=== PATIENT | female | born 1975 | race Two or more races ===

== ENCOUNTER → 2017-10-05 | Outpatient (CLI) | payer OTHER ==
[~2017-10-05] VITALS: Ht 152.4 cm; Wt 93.4 kg
== END | disposition home or self-care (01) ==
LOC: PPHC 11:56
DX: R42 Dizziness and giddiness (principal); Z00.00 Encounter for general adult medical examination without abnormal findings

== ENCOUNTER 2017-10-06 07:43 | Outpatient (CLI) | payer OTHER | END 2017-10-06 08:02 | disposition home or self-care (01) | LOC: LAB 07:43 | DX: Z00.00 Encounter for general adult medical examination without abnormal findings (principal); R42 Dizziness and giddiness ==

== ENCOUNTER → 2017-10-10 | Outpatient (CLI) | payer OTHER | END | disposition home or self-care (01) | LOC: SONOGRAMA 14:31 | DX: Z00.00 Encounter for general adult medical examination without abnormal findings (principal) ==

== ENCOUNTER → 2017-11-29 | Outpatient (CLI) | payer OTHER | END | disposition home or self-care (01) | LOC: PPHC 15:44 | DX: I10 Essential (primary) hypertension (principal); Z00.8 Encounter for other general examination ==

== ENCOUNTER → 2018-01-28 06:47 | Outpatient (CLI) | payer OTHER | END | disposition home or self-care (01) | LOC: LAB 06:47 | DX: R51 Headache (principal); I10 Essential (primary) hypertension; R42 Dizziness and giddiness ==

== ENCOUNTER 2018-03-19 07:29 | Outpatient (CLI) | payer OTHER | END 2018-03-19 08:02 | disposition home or self-care (01) | LOC: NUCLEAR 07:29 | DX: I10 Essential (primary) hypertension (principal) ==

== ENCOUNTER 2018-08-24 15:42 | Outpatient (CLI) | payer OTHER | END 2018-08-24 18:00 | disposition home or self-care (01) | LOC: LAB 15:42 | DX: D64.89 Other specified anemias (principal); N39.0 Urinary tract infection, site not specified; R10.9 Unspecified abdominal pain; E03.8 Other specified hypothyroidism; E78.49 Other hyperlipidemia; E55.9 Vitamin D deficiency, unspecified; E11.9 Type 2 diabetes mellitus without complications; R73.09 Other abnormal glucose; R80.8 Other proteinuria ==

== ENCOUNTER 2018-08-30 07:03 | Outpatient (CLI) | payer OTHER | END 2018-08-30 07:05 | disposition home or self-care (01) | LOC: MAMO-SONO 07:03 | DX: N63.10 Unspecified lump in the right breast, unspecified quadrant (principal); N63.20 Unspecified lump in the left breast, unspecified quadrant; N64.59 Other signs and symptoms in breast; N64.89 Other specified disorders of breast ==

== ENCOUNTER 2018-08-30 07:22 | Outpatient (CLI) | payer OTHER | END 2018-08-30 07:30 | disposition home or self-care (01) | LOC: LAB 07:22 | DX: Z11.3 Encounter for screening for infections with a predominantly sexual mode of transmission (principal); Z11.59 Encounter for screening for other viral diseases; N90.89 Other specified noninflammatory disorders of vulva and perineum; Z11.4 Encounter for screening for human immunodeficiency virus [HIV] ==

== ENCOUNTER → 2019-03-27 07:55 | Outpatient (CLI) | payer OTHER | END | disposition home or self-care (01) | LOC: LAB 07:55 | DX: I10 Essential (primary) hypertension (principal); E55.9 Vitamin D deficiency, unspecified ==

== ENCOUNTER 2019-04-17 08:46 | Outpatient (CLI) | payer OTHER | END 2019-04-17 08:50 | disposition home or self-care (01) | LOC: NUCLEAR 08:46 | DX: I65.29 Occlusion and stenosis of unspecified carotid artery (principal); I10 Essential (primary) hypertension ==

== ENCOUNTER 2020-12-10 11:03 | Outpatient (CLI) | payer OTHER | END 2020-12-10 11:29 | disposition home or self-care (01) | LOC: MAMO-SONO 11:03 | DX: N64.59 Other signs and symptoms in breast (principal); N64.89 Other specified disorders of breast ==

== ENCOUNTER 2021-02-24 07:47 | Outpatient (CLI) | payer OTHER | END 2021-02-24 09:51 | disposition home or self-care (01) | LOC: SONOGRAMA 07:47 | PROVIDERS: ATTEND Pathology Anatomic Pathology & Clinical Pathology | DX: E04.1 Nontoxic single thyroid nodule (principal) ==

== ENCOUNTER 2021-09-29 08:28 | Outpatient (CLI) | payer OTHER | END 2021-09-29 08:31 | disposition home or self-care (01) | LOC: SONOGRAMA 08:28 | PROVIDERS: ATTEND Pathology Anatomic Pathology & Clinical Pathology | DX: E04.1 Nontoxic single thyroid nodule (principal) ==

== ENCOUNTER → 2022-03-10 10:00 | Outpatient (CLI) | payer OTHER | END | disposition home or self-care (01) | LOC: MAMO-SONO 10:00 | PROVIDERS: ATTEND Radiology Diagnostic Radiology | DX: Z12.31 Encounter for screening mammogram for malignant neoplasm of breast (principal) ==